=== PATIENT | male | born 1960 | race Caucasian/White ===

== ENCOUNTER 2025-04-22 11:35 | Emergency (ER) | payer MEDICARE, SELFPAY ==
--- NOTE | ~2025-04-22 | XR_ITS ---
EXAMINATION: XR chest 2V 04/22/2025 12:28 INDICATION: Cough for 3 weeks PROCEDURE: 2 view chest COMPARISON: No prior studies for comparison. FINDINGS: The lungs are clear. The cardiomediastinal silhouette is within normal limits. There are no pleural effusions. There is no pneumothorax suspected. IMPRESSION: 1: NO ACUTE CARDIOPULMONARY DISEASE. Reviewed, dictated and finalized at location O.
[2025-04-22 11:35] VITALS: BP 180/107; PULSE 70; RESP 20; TEMP 36.2; O2SAT 97
--- NOTE | 2025-04-22 11:44 | ED_ITS ---
HPI - General Adult General Chief complaint: Upper Respiratory Infection Stated complaint: Inhaled a Bug/Cough/Chest Pain Time Seen by Provider: 04/22/25 11:57 Source: patient, RN notes reviewed and old records reviewed Mode of arrival: ambulatory Limitations: no limitations History of Present Illness HPI narrative: 64-year-old male presents to the [facility] with complaints of cough and airway feeling irritated. Patient states that he was outside when he inhaled a bug about 3 weeks ago. Shortly after started with coughing, worse at night. No treatment prior to arrival Related Data Home Medications ?Medication ?Instructions ?Recorded ?Confirmed ?Last Taken ?Type brimonidine 0.2 %-timolol 0.5 % drp 04/22/25 Unknown History eye drops (Combigan) latanoprost 0.005 % eye drops drp 04/22/25 Unknown Hi story Allergies Allergy/AdvReac Type Severity Reaction Status Date / Time No Known Allergies Allergy Verified 04/22/25 11:49 Review of Systems Review of Systems: All systems reviewed & are unremarkable except as noted in HPI and below Constitutional: Constitutional: Reports no additional constitutional complaints ENT: Reports system reviewed and no additional complaints, except as documented Cardiovascular: Cardiovascular: Reports no additional cardiovascular complaints, Denies chest pain and Denies dyspnea Respiratory: Respiratory: Reports as per HPI, Denies chest congestion, Reports cough and Denies dyspnea Musculoskeletal: Musculoskeletal: Reports no additional musculoskeletal complaints Integumentary/Breasts: Skin/Breast: Reports system reviewed and no additional complaints, except as docu PMFSH Comments At the time of my signature, I reviewed and agree with the nursing past medical, surgical, social, and family history. There is no relevant family history pertinent to the patient complaint. Exam Const: General: cooperative, healthy appearing, comfortable, no acute distress, well developed, alert and well nourished Nutritional Appearance: well nourished Orientation/consciousness: patient oriented x3 Limitations: no limitations HENMT: Head: normal to inspection Ears: hearing grossly normal bilaterally, external ears normal, TM's normal bilaterally, EAC's normal, mastoids normal and no periauricular adenopathy Mouth: Yes Normal oral and palatal mucosa present, Yes lip normal, Yes tongue normal and Yes moist mucous membranes Throat: posterior oropharynx normal, uvula midline and no uvular edema Eyes: General: appearance normal, both eyes and all related structures Alignment and Position: alignment normal Neck: Neck: normal visual inspection, full ROM, no lymphadenopathy and no meningeal signs Chest: Chest palpation & inspection: normal inspection of the chest Resp: Effort & Inspection: normal respiratory effort and able to speak in complete sentences Auscultation: clear to auscultation bilaterally, no crackles, no rales, no rhonchi and no wheezes Cardio: Rate: regular rate Skin: General skin exam: normal color and no rashes or lesions noted Neuro: General: patient oriented x3, gait normal, moves all extremities and no meningeal signs Cognition (Neuro): normal cognition Speech: normal speech Gait exam (Neuro): Normal gait present Extrem: General: normal to inspection, full ROM, capillary refill normal and normal gait Psych: Appearance: grossly normal and well kempt Mental Status: mental status grossly normal Speech and movement: Normal speech and movement present and Clear speech present Affect: normal affect Attitude: cooperative Course Course Level of Care: Express Care Visit Vital Signs Vital signs: Vital Signs Temperature 97.2 F 04/22/25 11:35 Pulse Rate 70 04/22/25 11:35 Respiratory Rate 20 04/22/25 11:35 Blood Pressure 180/107 04/22/25 11:35 Pulse Oximetry 97 04/22/25 11:35 Oxygen Delivery Room Air 04/22/25 11:35 Temperature 97.2 F 04/22/25 11:35 Pulse Rate 70 04/22/25 11:35 Respiratory Rate 20 04/22/25 11:35 Blood Pressure 180/107 04/22/25 11:35 Pulse Oximetry 97 04/22/25 11:35 Oxygen Delivery Room Air 04/22/25 11:35 Reviewed Medical Decision Making MDM Narrative Medical decision making narrative: Patient sitting comfortably in exam room. Nontoxic, vitals stable. Patient in no acute distress Patient presents with 3 weeks of a cough after inhaling a bug. X-ray with no acute findings Will cover with antibiotic, steroid Stressed the importance of following up with primary care provider to have his blood pressure rechecked as well. Patient appropriate for outpatient treatment with close follow-up Discharge instructions reviewed with patient, as well as provided in writing per nursing staff. The instructions also include specific and strict return/GO TO THE ER as well as f/u information. All questions have been answered, and the patient deny any further questions with discharge and discharge plan. Some parts of this dictation were generated by voice recognition software and may contain typographical and/or grammatical inaccuracies. Differential Diagnosis Differential Diagnosis: Bronchitis, pneumonia, Medical Records Medical records reviewed: Yes I reviewed the external patient's medical records. Vital Signs Vital Signs: Vital Signs Temperature 97.2 F 04/22/25 11:35 Pulse Rate 70 04/22/25 11:35 Respiratory Rate 20 04/22/25 11:35 Blood Pressure 180/107 04/22/25 11:35 Pulse Oximetry 97 04/22/25 11:35 Oxygen Delivery Room Air 04/22/25 11:35 Temperature 97.2 F 04/22/25 11:35 Pulse Rate 70 04/22/25 11:35 Respiratory Rate 20 04/22/25 11:35 Blood Pressure 180/107 04/22/25 11:35 Pulse Oximetry 97 04/22/25 11:35 Oxygen Delivery Room Air 04/22/25 11:35 Reviewed Lab Data Lab results reviewed: Yes I reviewed the patient's lab results. Labs: Reviewed Critical Care Time Critical Care Time Critical Care Time: No Discharge Plan Discharge Clinical Impression: Bronchitis Patient Disposition: Home Condition: Stable Instructions: Acute Bronchitis (ED) Additional Instructions: Today your blood pressure was 180/107. Please follow-up with primary care provider to have this rechecked within the next 2 weeks. For new or worsening symptoms go directly to the emergency room Patient Language: Citizen Of [place] Prescriptions: New prednisone 20 mg tablet See Rx Instructions .Route .COMPLEX Qty: 9 0RF Rx Instructions: Take 40 mg daily for 3 days, 20 mg daily for 3 days doxycycline monohydrate 100 mg tablet 100 mg PO BID Qty: 14 0RF No Action latanoprost 0.005 % drops brimonidine-timolol [Combigan] 0.2-0.5 % drops Follow-up/Referrals: Masoud Morales DO [Primary Care Provider, Internal Medicine] - 1 Week Clinical Impression: Bronchitis Time of Disposition: 12:37
== END 2025-04-22 12:42 | disposition home or self-care (01) ==
PROVIDERS: Emergency Provider Nurse Practitioner; PCP Internal Medicine
DX: J40 Bronchitis, not specified as acute or chronic (principal)
CPT/HCPCS: 71046; 99213; G0463

== ENCOUNTER 2025-04-30 12:30 | Emergency (ER) | payer MEDICARE, SELFPAY ==
[2025-04-30 12:48] VITALS: BP 166/106; PULSE 66; RESP 16; TEMP 36.3; O2SAT 97
--- NOTE | 2025-04-30 13:10 | ED.URI ---
HPI - URI/Sore Throat General Chief Complaint: Upper Respiratory Infection Stated Complaint: Cough Time Seen by Provider: 04/30/25 13:10 Source: patient, RN notes reviewed and old records reviewed Mode of arrival: ambulatory Limitations: no limitations History of Present Illness HPI Narrative: 64-year-old male returns to the [facility] with continued cough. Was seen on 04/22, prescribed steroids and antibiotics. Patient states that he is not any better. Has not followed up with his primary as of yet. Has an appointment in July. Reviewed previous note, x-rays with patient. Patient reports that when he is about to call if his chest gets tight. Denies taking any other medications aside what was prescribed Patient reports approximately 1 month ago he ?inhaled a bug? since has had issues with coughing Treatments prior to arrival: antibiotics and other (Steroids) Related Data Home Medications ?Medication ?Instructions ?Recorded ?Confirmed ?Last Taken ?Type brimonidine 0.2 %-timolol 0.5 % drp 04/22/25 Unknown History eye drops (Combigan) latanoprost 0.005 % eye drops drp 04/22/25 Unknown History Allergies Allergy/AdvReac Type Severity Reaction Status Date / Time No Known Allergies Allergy Verified 04/30/25 13:19 Review of Systems Review of Systems: All systems reviewed & are unremarkable except as noted in HPI and below Constitutional: Constitutional: Reports no additional constitutional complaints ENT: Reports system reviewed and no additional complaints, except as documented Cardiovascular: Cardiovascular: Reports no additional cardiovascular complaints, Denies chest pain and Denies dyspnea Respiratory: Respiratory: Reports as per HPI, Denies chest congestion, Reports cough and Denies dyspnea Musculoskeletal: Musculoskeletal: Reports no additional musculoskeletal complaints Integumentary/Breasts: Skin/Breast: Reports system reviewed and no additional complaints, except as docu PMFSH Comments At the time of my signature, I reviewed and agree with the nursing past medical, surgical, social, and family history. There is no relevant family history pertinent to the patient complaint. Exam Const: General: cooperative, healthy appearing, comfortable, no acute distress, well developed, alert and well nourished Nutritional Appearance: well nourished Orientation/consciousness: patient oriented x3 Limitations: no limitations HENMT: Head: normal to inspection Ears: hearing grossly normal bilaterally, external ears normal and TM's normal bilaterally Throat: posterior oropharynx normal, uvula midline and no uvular edema Eyes: General: appearance normal, both eyes and all related structures Alignment and Position: alignment normal Neck: Neck: normal visual inspection, full ROM, no lymphadenopathy and no meningeal signs Chest: Chest palpation & inspection: normal inspection of the chest Resp: Effort & Inspection: normal respiratory effort and able to speak in complete sentences Auscultation: clear to auscultation bilaterally, no crackles, no rales, no rhonchi and no wheezes Cardio: Rate: regular rate Skin: General skin exam: normal color and no rashes or lesions noted Neuro: General: patient oriented x3, gait normal, moves all extremities and no meningeal signs Cognition (Neuro): normal cognition Speech: normal speech Gait exam (Neuro): Normal gait present Extrem: General: normal to inspection, full ROM, capillary refill normal and normal gait Psych: Appearance: grossly normal and well kempt Mental Status: mental status grossly normal Speech and movement: Normal speech and movement present and Clear speech present Affect: normal affect Attitude: cooperative Course Course Level of Care: Express Care Visit Vital Signs Vital signs: Vital Signs Temperature 97.4 F 04/30/25 12:48 Pulse Rate 66 04/30/25 12:48 Respiratory Rate 16 04/30/25 12:48 Blood Pressure 166/106 04/30/25 12:48 Pulse Oximetry 97 04/30/25 12:48 Temperature 97.4 F 04/30/25 12:48 Pulse Rate 66 04/30/25 12:48 Respiratory Rate 16 04/30/25 12:48 Blood Pressure 166/106 04/30/25 12:48 Pulse Oximetry 97 04/30/25 12:48 Reviewed MDM - URI/Sore Throat MDM Narrative Medical decision making narrative: Patient sitting in exam room. Patient is nontoxic, vitals are stable. Patient presents with continued cough, was evaluated 1 week ago, x-ray was negative. Patient continues to have symptoms Discussed adding a cough medication, EKG showed no acute findings, discussed also possible follow-up in the ER which he is declining at this time Discharge instructions reviewed with patient, as well as provided in writing per nursing staff. The instructions also include specific and strict return/GO TO THE ER as well as f/u information. All questions have been answered, and the patient deny any further questions with discharge and discharge plan. Some parts of this dictation were generated by voice recognition software and may contain typographical and/or grammatical inaccuracies. Differential Diagnosis Differential diagnosis: Likely upper respiratory infection, otitis media, sinusitis, viral infection, bronchitis, influenza and pharyngitis ECG Data EKG #1: Attestation: I personally reviewed and interpreted this ECG as follows: ECG completion date: 04/30/25 ECG completion time: 13:27 Prior ECG tracings: not available for review Interpretation: Sinus rhythm, abnormal EKG, and rate of 61, CA interval 84, QRS duration 107. Critical Care Time Critical Care Time Critical Care Time: No Discharge Plan Discharge Clinical Impression: Elevated blood pressure reading Cough Qualifiers: Cough type: subacute Qualified Code(s): R05.2 - Subacute cough Patient Disposition: Home Condition: Stable Instructions: Acute Cough (ED) Additional Instructions: Today your blood pressure was 166/106. We recommend you follow-up with your primary care provider For worsening symptoms or continues symptoms please proceed to the nearest emergency room Patient Language: Georgian Prescriptions: New benzonatate 100 mg capsule 100 mg PO TID PRN (Reason: cough) Qty: 15 0RF No Action latanoprost 0.005 % drops brimonidine-timolol [Combigan] 0.2-0.5 % drops doxycycline monohydrate 100 mg tablet 100 mg PO BID Qty: 14 0RF Follow-up/Referrals: PHYSICIAN,INSURANCE VERIFICATION REP [Primary Care Provider, Internal Medicine] Time of Disposition: 13:41
--- NOTE | 2025-04-30 13:23 | ECG_ITS ---
Test Date: 2025-04-30 13:27:55 Measurements Intervals [place] Rate: 61 P: 35 IA: 184 QRS: -57 QRSD: 107 T: 22 QT: 414 QTc: 420 Interpretive Statements SINUS RHYTHM POSSIBLE LEFT ATRIAL ENLARGEMENT [-0.1mV P WAVE IN V1/V2] PREVIOUS INFERIOR WALL INFARCTION CANNOT RULE OUT PREVIOUS SEPTAL INFARCTION ABNORMAL ECG No previous ECG available for comparison Electronically Signed On 04-30-2025 16:05:27 CDT by Brad Lucero M.D.
== END 2025-04-30 13:50 | disposition home or self-care (01) ==
PROVIDERS: Emergency Provider Nurse Practitioner
DX: R03.0 Elevated blood-pressure reading, without diagnosis of hypertension (principal); R05.2 Subacute cough; R94.31 Abnormal electrocardiogram [ECG] [EKG]
CPT/HCPCS: 93005; 99213; G0463

== ENCOUNTER 2025-08-06 12:36 | Outpatient (CLI) | payer MEDICARE, SELFPAY ==
[2025-08-06 19:30] LABS: Hematocrit 48.6 % (42.0-52.0); Hemoglobin 16.5 g/dL (14.0-18.0); Immature Granulocyte Percent A 0.2 % (0-0.5); Lymphocytes Absolute Auto 1.80 K/mm3 (0.9-3.2); Mean Corpuscular HGB Conc 34.0 g/dl (32-36); Mean Corpuscular Hemoglobin 31.7 pg (26-34); Mean Corpuscular Volume 93.3 fl (80-100); Nucleated Red Blood Cells Absolute Auto 0.000 K/mm3 (0.0-0.012); Nucleated Red Blood Cells Perc 0.0 % (0.0-0.2); Platelet Count Result 273 k/mm3 (150-375); Red Blood Count 5.21 M/mm3 (4.6-6.20); White Blood Count 6.3 K/mm3 (4.5-10.0)
[2025-08-06 19:57] LABS: Alanine Aminotransferase 33 U/L (6-50); Albumin Level 4.5 g/dL (3.5-5.1); Alkaline Phosphatase 50 U/L (38-126); Anion Gap 5 mmol/L (4-12); Aspartate Amino Transferase 47 U/L (17-59); Bilirubin,Total 0.9 mg/dL (0.2-1.3); Blood Urea Nitrogen 14 mg/dL (9-20); Calcium 9.5 mg/dL (8.4-10.2); Carbon Dioxide 30 mmol/L (22-30); Chloride 103 mmol/L (98-107); Cholesterol 249 mg/dL (0-200); Estimated Glomerular Filt Rate > 60; Glucose 89 mg/dL (65-110); HDL Direct 42 mg/dL; Potassium 4.5 mmol/L (3.4-5.0); Sodium 138 mmol/L (137-145); Total Protein 8.5 g/dL (6.3-8.2); Triglycerides 128 mg/dL (<150)
[2025-08-06 20:29] LABS: Prostate Specific Antigen 2.6 ng/mL (< OR = 4.0)
== END 2025-08-06 12:37 | disposition home or self-care (01) ==
LOC: ANHGOSHLAB 12:37
PROVIDERS: PCP Internal Medicine; Visit Provider Internal Medicine
DX: I10 Essential (primary) hypertension (principal); Z12.5 Encounter for screening for malignant neoplasm of prostate; Z86.39 Personal history of other endocrine, nutritional and metabolic disease; Z13.29 Encounter for screening for other suspected endocrine disorder; Z13.0 Encounter for screening for diseases of the blood and blood-forming organs and certain disorders involving the immune mechanism; Z13.228 Encounter for screening for other metabolic disorders
CPT/HCPCS: 36415; 80053; 80061; 82172; 84153; 85025; G0103